=== PATIENT | male | born 1985 | race African-American/Black ===

== ENCOUNTER 2025-02-12 09:21 | Emergency (ER) | payer OTHER, SELFPAY ==
[2025-02-12 09:41] VITALS: BP 137/90; PULSE 102; RESP 18; TEMP 36.8; O2SAT 100
--- NOTE | 2025-02-12 09:52 | ED_ITS ---
HPI - Back Pain/Injury General Chief Complaint: Back Pain/Injury Stated Complaint: back pain Time Seen by Provider: 02/12/25 09:50 Source: patient Mode of arrival: ambulatory Limitations: no limitations History of Present Illness HPI Narrative: Michael is a 40-year-old patient presenting to the clinic today with complaints of right-sided low back pain for over 1 week. 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 States that he took a week off and his symptoms improved and he has been taking ibuprofen. Reports that he return to work yesterday and picked up another ladder and developed pain again. Denies any saddle anesthesia or loss of bowel or bladder. No radiation of pain down his lower extremities. Rates pain 3/10 currently. Denies any urinary symptoms or any history kidney stones. No fevers, chills, or body aches. Review of Systems Review of Systems: Pertinent positives per HPI. Patient denies any fever, chills, rash, headache, visual changes, dizziness, cough, shortness of breath, chest pain, palpitations, nausea, vomiting, diarrhea, constipation, abdominal pain, or any urinary issues. PMFSH Comments At the time of my signature, I reviewed and agree with the nursing past medical, surgical, social, and family history. There is no relevant family history pertinent to the patient complaint. Exam Narrative: General: Well-developed, well nourished, in no apparent distress Head: Normocephalic, atraumatic. Cardio: Regular rate and rhythm, s1 and s2 normal, no murmur appreciated. Resp: Clear to auscultation bilaterally, no rhonchi, rales, wheezing or rubs. Musculoskeletal: No deformity, paraspinous musculature of the right lower back- tender to palpation, grossly normal range of motion, muscle strength strong and equal in BLE. SLT negative, patellar reflexes 2/4 bilaterally, negative foot drop, normal gait and station Course Course Level of Care: Express Care Visit Vital Signs Vital signs: Vital Signs Temperature 36.8 C 02/12/25 09:41 Pulse Rate 102 H 02/12/25 09:41 Respiratory Rate 18 02/12/25 09:41 Blood Pressure 137/90 02/12/25 09:41 Pulse Oximetry 100 02/12/25 09:41 Oxygen Delivery Room Air 02/12/25 09:41 Temperature 36.8 C 02/12/25 09:41 Pulse Rate 102 H 02/12/25 09:41 Respiratory Rate 18 02/12/25 09:41 Blood Pressure 137/90 02/12/25 09:41 Pulse Oximetry 100 02/12/25 09:41 Oxygen Delivery Room Air 02/12/25 09:41 MDM MDM Narrative Medical decision making narrative: At the time of visit patient is resting comfortably on the exam table. Patient appears to be nontoxic. Complaints of right-sided low back pain for over 1 week. 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 States that he took a week off and his symptoms improved and he has been taking ibuprofen. Reports that he return to work yesterday and picked up another ladder and developed pain again. Denies any saddle anesthesia or loss of bowel or bladder. No radiation of pain down his lower extremities. Rates pain 3/10 currently. Denies any urinary symptoms or any history kidney stones. No fevers, chills, or body aches. On exam patient has tenderness to palpation over the right paraspinous musculature of the low back, negative straight leg test, negative foot drop, patellar reflexes 2+, bilateral lower extremities, negative foot drop. I do not feels though the patient needs a back x-ray at this time as he has no midline tenderness. Plan: I suspect patient has right lower back strain/low back pain. Prescription for baclofen and Medrol Dosepak was sent to the pharmacy. Offered work note patient declined at this time. Supportive measures were discussed with the patient and they voiced understanding discharge instructions and agrees to treatment plan. Return precautions reviewed Differential Diagnosis Differential Diagnosis: Differential diagnostic considerations for back pain include herniated disc, sciatica, abscess, strain/sprain, discitis, myelitis, fracture, hematoma, cauda equina, osteomyelitis, metastatic and/or primary malignancy, renal colic, pyelonephritis, AAA. Discharge Plan Discharge Clinical Impression: Low back pain Qualifiers: Chronicity: acute Back pain laterality: right Sciatica presence: without sciatica Qualified Code(s): M54.50 - Low back pain, unspecified Strain of lumbar region Qualifiers: Encounter type: initial encounter Qualified Code(s): S39.012A - Strain of muscle, fascia and tendon of lower back, initial encounter Patient Disposition: Home Condition: Stable Instructions: Antibiotic Form, Low Back Strain (ED), Acute Low Back Pain (ED), Lower Back Exercises (ED) Additional Instructions: Take any prescription medication only as prescribed-Medrol Dosepak and baclofen Be mindful of sedation precautions given to you if taking a muscle relaxer. May use heat or ice to the affected area Consider massage or chiropractor adjustment if this was discussed with provider May use blue emu, lidocaine patches, or asper cream to affected area- do not apply heat or ice directly over cream- can cause burn. Complete appropriate back stretching exercises. Follow up with your PCP in 3-5 days if symptom persist. Patient Language: Mongolian Prescriptions: New methylprednisolone [Medrol (Remigio)] 4 mg tablets,dose pack See Rx Instructions PO .COMPLEX Qty: 21 0RF Rx Instructions: orally per package directions baclofen 10 mg tablet 10 mg PO TID PRN (Reason: muscle spasm) 7 Days Qty: 21 0RF Follow-up/Referrals: PHYSICIAN,ANALOG CIRCUIT DESIGNER [Primary Care Provider, Internal Medicine] Time of Disposition: 09:55 Quality NIHSS Nursing Documentation ED NIHSS nursing documentation: reviewed/agree
== END 2025-02-12 10:04 | disposition home or self-care (01) ==
PROVIDERS: Emergency Provider Nurse Practitioner Family
DX: S39.012A Strain of muscle, fascia and tendon of lower back, initial encounter (principal); X50.0XXA Overexertion from strenuous movement or load, initial encounter; Y99.0 Civilian activity done for income or pay
CPT/HCPCS: 99203; G0463